=== PATIENT | female | born 1935 | race Caucasian/White ===

== ENCOUNTER 2018-08-26 21:28 | Inpatient (IN) | payer MEDICARE, BC ==
[~2018-08-26] VITALS: Ht 170.2 cm; Wt 77.6 kg
--- NOTE | 2018-08-26 22:30 | NUR ---
Pt. brought into ER by family w/ c/o R hip pain,
[2018-08-26] MEDS ORDERED: MORPHINE SULFATE 2 MG/1 ML DISP.SYRIN IV ONE (22:45)
[2018-08-26] MEDS ORDERED: ONDANSETRON 4 MG/2 ML VIAL IV ONE (22:45)
[2018-08-26] MEDS ORDERED: ONDANSETRON 4 MG/2 ML VIAL ONE (22:53)
[2018-08-26] MEDS ORDERED: MORPHINE SULFATE 2 MG/1 ML DISP.SYRIN ONE (22:54)
[2018-08-26 23:03] LABS: BASOPHILS # (AUTO) 0.1 K/uL (0.0-8.0); BASOPHILS % (AUTO) 0.5 % (0.0-2.0); EOSINOPHILS # (AUTO) 0.1 K/uL (0.0-0.7); EOSINOPHILS % (AUTO) 0.8 % (0.0-7.0); HEMOGLOBIN 11.9 g/dL (10.9-14.3); LYMPHOCYTES # (AUTO) 1.3 K/uL (20.0-40.0); LYMPHOCYTES % (AUTO) 10.1 % (20.5-51.5); MEAN CORPUSCULAR HEMOGLOBIN 32.5 uug (24.7-32.8); MEAN CORPUSCULAR HGB CONC 34 g/dL (32.3-35.6); MEAN CORPUSCULAR VOLUME 96.1 fL (75.5-95.3); MONOCYTES # (AUTO) 0.6 K/uL (2.0-10.0); MONOCYTES % (AUTO) 4.5 % (0.0-11.0); NEUTROPHILS # (AUTO) 11.1 K/uL (1.8-8.9); NEUTROPHILS % (AUTO) 84.1 % (38.5-71.5); PLATELET COUNT (AUTO) 215 K/uL (179-408); RED BLOOD CELL COUNT(AUTO) 3.65 MIL/uL (3.63-4.92); WHITE BLOOD COUNT (AUTO) 13.3 K/uL (3.8-11.8)
[2018-08-26 23:11] LABS: CARBON DIOXIDE 27 mmol/L (21-32); CHLORIDE 100 mmol/L (98-107); CREATININE 1.1 mg/dL (0.6-1.3); GLUCOSE 168 mg/dL (74-106); UREA NITROGEN, BLOOD 30 mg/dL (7-18)
[2018-08-26] MEDS ORDERED: MORPHINE SULFATE 4 MG/1 ML DISP.SYRIN IV ONE (23:30)
[2018-08-26] MEDS ORDERED: MORPHINE SULFATE 4 MG/1 ML DISP.SYRIN ONE (23:35)
[2018-08-26] MEDS ORDERED: LABETALOL HCL 100 MG/20 ML VIAL IV ONE (23:45)
[2018-08-26] MEDS ORDERED: HYDROMORPHONE 1 MG/1 ML DISP.SYRIN ONE (23:49)
[2018-08-26] MEDS ORDERED: LABETALOL HCL 100 MG/20 ML VIAL ONE (23:51)
[2018-08-26] MEDS ORDERED: FURO20TA4 PO (23:55)
[2018-08-26] MEDS ORDERED: ASPI-605 PO (23:55)
[2018-08-26] MEDS ORDERED: metoprolol PO (23:55)
[2018-08-26] MEDS ORDERED: SIMV40TA5 PO (23:55)
[2018-08-26] MEDS ORDERED: LISI10TA5 PO (23:55)
[2018-08-26] MEDS ORDERED: LEVO100T10 PO (23:55)
[2018-08-26] MEDS ORDERED: WARF7.5T49 PO (23:55)
[2018-08-27] MEDS ORDERED: diphenhydrAMINE 50 MG/1 ML VIAL IV ONE
[2018-08-27] MEDS ORDERED: HYDROMORPHONE 1 MG/1 ML DISP.SYRIN IV ONE
[2018-08-27] MEDS ORDERED: diphenhydrAMINE 50 MG/1 ML VIAL ONE (00:02)
[2018-08-27] MEDS ORDERED: hydrALAZINE HCL 20 MG/1 ML VIAL ONE (00:03)
[2018-08-27] MEDS ORDERED: IOHEXOL 300MG/ML 100 ML INFUS..BTL ONE (00:12)
[2018-08-27] MEDS ORDERED: SWABABLE VALVE TRANSFER SET EA MC ONE (00:12)
[2018-08-27] MEDS ORDERED: IV NORMAL SALINE 250 ML IV ONE (00:12)
[2018-08-27] MEDS ORDERED: hydrALAZINE HCL 20 MG/1 ML VIAL IV ONE (00:15)
[2018-08-27] MEDS ORDERED: LABETALOL HCL 100 MG/20 ML VIAL IV ONE ×2 (00:45)
--- NOTE | 2018-08-27 01:07 | NUR ---
Called [facility] for panel call
--- NOTE | 2018-08-27 01:20 | NUR ---
CALLED 2ND FLOOR FOR TELE BED. ASSIGNED [id number]
--- NOTE | 2018-08-27 01:57 | NUR ---
Gave report to pt. Nicolasa to transfer to tele room 205
--- NOTE | 2018-08-27 02:25 | NUR ---
Pt. admitted to TELE 205, under care of Dr. BAUTISTA. Belongs List completed
[2018-08-27 02:35] VITALS: BP 132/61
--- NOTE | 2018-08-27 02:35 | NUR ---
NSG: PT RECEIVED A/O X 4, FR ER VIA GURNEY WITH DX OF HEMATOMA. PT C/O RIGHT HIP PAIN THAT JUST STARTED YESTERDAY. TELE, AFIB. NO ACUTE DISTRESS NOTED. CONT TO MONITOR.
[2018-08-27] MEDS ORDERED: Z GUARD REMEDY PASTE 57 GM TUBE TOP PRN (02:45)
[2018-08-27] MEDS ORDERED: ONDANSETRON 4 MG/2 ML VIAL IV PRN (02:45)
[2018-08-27] MEDS ORDERED: ZOLPIDEM 5 MG TABLET PO PRN (02:45)
[2018-08-27] MEDS ORDERED: MORPHINE SULFATE 2 MG/1 ML DISP.SYRIN IV PRN (02:45)
[2018-08-27] MEDS ORDERED: MAGNESIUM HYDROXIDE 30 ML LIQUID UDC PO PRN (02:45)
[2018-08-27] MEDS ORDERED: IV NS 1000 ML 1,000 ML IV SCH (02:45)
[2018-08-27] MEDS ORDERED: ACETAMINOPHEN 325 MG TABLET PO PRN (02:45)
[2018-08-27] MEDS ORDERED: hydrALAZINE HCL 25 MG TABLET PO PRN (02:45)
[2018-08-27 04:00] VITALS: BP 125/75
--- NOTE | 2018-08-27 06:57 | NUR ---
nsg: pt only urinated 5ml using bedpan. pt encouraged to urinate. stated will urinate later. per pt, never had a problem urinating. does not want a garcia catheter. bedside commode at the bedside. will cont to monitor. will endorse to am nurse.
[2018-08-27] MEDS: LEVOTHYROXINE SODIUM 100 MCG TABLET PO SCH (07:30)
--- NOTE | 2018-08-27 07:30 | NUR ---
PATIENT ASSISTED FROM THE COMMODE NEEDED 2 MAX ASSIST TO TRANSFER BACK INTO BED LOWER EXT TENDS TO [facility] COMFORTABLE CALL LIGHTS AND PERSONAL BELONGINGS PLACED WITHIN EASY REACH.WILL CONTINUE TO OBSERVE.
[2018-08-27] MEDS: FUROSEMIDE 20 MG TABLET PO SCH (08:12)
[2018-08-27] MEDS: LISINOPRIL 10 MG TABLET PO SCH (08:13)
[2018-08-27] MEDS: METOPROLOL TARTRATE 50 MG TABLET PO SCH ×3 (08:13→20:54)
--- NOTE | 2018-08-27 08:14 | NUR ---
PATIENT REFUSED ALL HER MEDICATIONS STATED THAT SHE DOES NOT WANT TO BE CHARGED STATED THAT SHE WILL TAKE HER OWN MEDICATIONS FROM HOME BUT HER MEDICATIONS ARE NOT HERE HER IS AT THE BEDSIDE AND HE SAID THAT HE WILL BRING ALL HER MEDICATIONS LATER.
[2018-08-27] MEDS ORDERED: ASPIRIN EC 81 MG TABLET.DR PO SCH (09:00)
[2018-08-27 12:04] VITALS: BP 106/56
--- NOTE | 2018-08-27 13:00 | NUR ---
RESULT OF THE URINE RECEIVED FROM THE LAB AND DR COLIN NOTIFIED NO NEW ORDERS AT THIS TIME.
[2018-08-27 13:18] LABS: *BILIRUBIN,URIN NEGATIVE (NEGATIVE); *BLOOD, URINE Trace-lysed (NEGATIVE); *CLARITY,URINE SLIGHTLY CLOUDY (CLEAR); *COLOR,URINE YELLOW (YELLOW); *KETONES,URINE NEGATIVE (NEGATIVE); *PROTEIN,URINE NEGATIVE (NEGATIVE); *UROBILINOGEN,URINE 0.2 E.U./dl (NORMAL); LEUKOCYTE ESTERASE ,URINE 1+ (NEGATIVE); NITRITE, URINE POSITIVE (NEGATIVE); PH,URINE 6.5 (5.0-8.0); UGLUCOSE NEGATIVE (NEGATIVE)
[2018-08-27 13:36] LABS: BACTERIA,URINE MANY /HPF (NONE SEEN); RBC,URINE 0-3 /HPF (0-3); SQUAMOUS EPITHELIAL CELL,UR FEW /HPF (NONE SEEN); WBC,URINE 20-50 /HPF (0-3)
[2018-08-27 15:41] VITALS: BP 105/70
[2018-08-27] MEDS ORDERED: WARFARIN SODIUM 7.5 MG TABLET PO SCH (17:00)
[2018-08-27] MEDS ORDERED: LEVOFLOXACIN 500 MG/D5W 500 MG in PREMIXED 1 EACH IV SCH ×2 (19:00→20:00)
[2018-08-27 20:00] VITALS: BP 179/79
[2018-08-27] MEDS: SIMVASTATIN 40 MG TABLET PO SCH (20:46)
[2018-08-27] MEDS: HYDROCODONE/APAP 5-325MG TABLET PO PRN (21:09)
[2018-08-27] MEDS ORDERED: CLONIDINE HCL 0.1 MG TABLET PO PRN (22:30)
[2018-08-28] VITALS (7 sets, daily range): BP systolic 105–163; BP diastolic 46–67
[2018-08-28 06:13] LABS: BASOPHILS % (AUTO) 0.3 % (0.0-2.0); EOSINOPHILS # (AUTO) 0.5 K/uL (0.0-0.7); EOSINOPHILS % (AUTO) 5.2 % (0.0-7.0); HEMATOCRIT 28.7 % (31.2-41.9); HEMOGLOBIN 9.9 g/dL (10.9-14.3); LYMPHOCYTES # (AUTO) 1.6 K/uL (20.0-40.0); LYMPHOCYTES % (AUTO) 19.1 % (20.5-51.5); MEAN CORPUSCULAR HGB CONC 35 g/dL (32.3-35.6); MEAN CORPUSCULAR VOLUME 95.5 fL (75.5-95.3); MONOCYTES % (AUTO) 11.5 % (0.0-11.0); NEUTROPHILS # (AUTO) 5.5 K/uL (1.8-8.9); NEUTROPHILS % (AUTO) 63.9 % (38.5-71.5); PLATELET COUNT (AUTO) 174 K/uL (179-408); WHITE BLOOD COUNT (AUTO) 8.6 K/uL (3.8-11.8)
[2018-08-28 06:43] LABS: CARBON DIOXIDE 33 mmol/L (21-32); CHLORIDE 105 mmol/L (98-107); CHOLESTEROL 157 mg/dL (<200); CREATININE 0.9 mg/dL (0.6-1.3); GLUCOSE 94 mg/dL (74-106); HDL CHOLESTEROL 55 mg/dL (40-60); MAGNESIUM 2.2 mg/dL (1.8-2.4); PHOSPHOROUS 2.8 mg/dL (2.5-4.9); POTASSIUM 4.8 mmol/L (3.5-5.1); TRIGLYCERIDES 129 MG/DL (30-150); UREA NITROGEN, BLOOD 19 mg/dL (7-18)
[2018-08-28] MEDS: PANTOPRAZOLE SODIUM 40 MG TABLET.DR PO SCH (06:53)
[2018-08-28] MEDS: LEVOTHYROXINE SODIUM 100 MCG TABLET PO SCH (06:54)
[2018-08-28] MEDS: LISINOPRIL 10 MG TABLET PO SCH (08:23)
[2018-08-28] MEDS: METOPROLOL TARTRATE 50 MG TABLET PO SCH ×2 (08:27→16:51)
[2018-08-28] MEDS: HYDROCODONE/APAP 5-325MG TABLET PO PRN ×2 (08:27→19:28)
[2018-08-28] MEDS: FUROSEMIDE 20 MG TABLET PO SCH (08:28)
--- NOTE | 2018-08-28 08:30 | NUR ---
PATIENT RECEIVED AWAKE ALERT AND ORIENTED REQUESTED FOR PAIN MEDICATIONS GIVEN ORDERED REMAIN ON ROOM AIR WITH NO SHORTNESS OF BREATH AT THIS TIME NO ADVERSE OR ALLERGIC REACTIONS NOTED FROM ATB ORDERED ASSISTED NEEDED USING THE BEDSIDE COMMODE AND VOIDING WELL WILL CONTINUE TO OBSERVE.
--- NOTE | 2018-08-28 10:50 | NUR ---
VENOUS DUPLEX COMPLETED ORDERED AWAITING FOR RESULTS.
[2018-08-28 13:01] LABS: IRON, SERUM 58 ug/dL (50-175)
--- NOTE | 2018-08-28 18:40 | NUR ---
RESTING DENIES DISCOMFORTS AT THIS TIME FAMILY AT THE BEDSIDE NOT IN DISTRESS AT THIS TIME.
--- NOTE | 2018-08-28 19:10 | NUR ---
RECEIVED PATIENT AWAKE ON BED, AAOX4 DENIES SOB OR CHEST PAIN AT THIS TIME. IV SITE ON RFA, PATENT AND INTACT. SAFETY MEASURES INITIATED, PLACED BED ON LOW AND LOCKED POSITION WITH TWO SIDE RAILS UP. BED ALARM ON. PT BELONGINGS AND CALL RICHARD WITHIN REACH.
[2018-08-28] MEDS ORDERED: LEVOFLOXACIN 250MG /D5W 250 MG in PREMIXED 1 EACH IV SCH (20:00)
[2018-08-28] MEDS: SIMVASTATIN 40 MG TABLET PO SCH (20:50)
[2018-08-28] MEDS ORDERED: FUROSEMIDE 20 MG TABLET PO SCH (21:00)
--- NOTE | 2018-08-28 21:00 | NUR ---
PATIENT REFUSED TO TAKE SCHEDULED LASIX AT THIS TIME. PER PATIENT, SHE TAKES HER LASIX IN THE MORNING. WILL ENDORSE ACCORDINGLY IN THE AM.
--- NOTE | 2018-08-28 21:30 | NUR ---
REASSESSED PATIENT, PATIENT COMPLAINT OF PAIN ON R HIP WITH PAIN SCALE OF 7, BP SHOWS 128/58. PATIENT REQUESTING FOR PAIN MEDICATION. PRN TYLENOL 650 GIVEN. WILL CONTINUE TO MONITOR.
--- NOTE | 2018-08-28 22:40 | NUR ---
PATIENT PAIN SCALE 3/10. NO SIGNS OF ACUTE DISTRESS NOTED AT THIS TIME. TREATMENT EFFECTIVE.
[2018-08-29] VITALS: BP 131/75
[2018-08-29] MEDS: HYDROCODONE/APAP 5-325MG TABLET PO PRN ×3 (01:16→18:36)
[2018-08-29 04:00] VITALS: BP 134/50
[2018-08-29] MEDS: PANTOPRAZOLE SODIUM 40 MG TABLET.DR PO SCH (06:28)
[2018-08-29] MEDS: LEVOTHYROXINE SODIUM 100 MCG TABLET PO SCH (06:28)
[2018-08-29 06:31] LABS: BASOPHILS % (AUTO) 0.5 % (0.0-2.0); EOSINOPHILS # (AUTO) 0.6 K/uL (0.0-0.7); EOSINOPHILS % (AUTO) 7.4 % (0.0-7.0); HEMATOCRIT 29.5 % (31.2-41.9); LYMPHOCYTES # (AUTO) 2.3 K/uL (20.0-40.0); MEAN CORPUSCULAR HEMOGLOBIN 33.2 uug (24.7-32.8); MEAN CORPUSCULAR HGB CONC 34 g/dL (32.3-35.6); MONOCYTES # (AUTO) 0.8 K/uL (2.0-10.0); MONOCYTES % (AUTO) 9.5 % (0.0-11.0); NEUTROPHILS # (AUTO) 4.9 K/uL (1.8-8.9); NEUTROPHILS % (AUTO) 56.6 % (38.5-71.5); PLATELET COUNT (AUTO) 186 K/uL (179-408); RED BLOOD CELL COUNT(AUTO) 3.01 MIL/uL (3.63-4.92); WHITE BLOOD COUNT (AUTO) 8.7 K/uL (3.8-11.8)
[2018-08-29 06:48] LABS: CARBON DIOXIDE 33 mmol/L (21-32); CHLORIDE 106 mmol/L (98-107); CREATININE 0.9 mg/dL (0.6-1.3); GLUCOSE 94 mg/dL (74-106); POTASSIUM 4.4 mmol/L (3.5-5.1); UREA NITROGEN, BLOOD 16 mg/dL (7-18)
--- NOTE | 2018-08-29 06:49 | NUR ---
PATIENT ON BED, AAOX4, NO SIGNS OF ACUTE DISTRESS NOTED AT THIS TIME. IV SITE ON RFA, PATENT AND INTACT. PATIENT ABLE TO TOLERATE AMBULATING FROM BED TO COMMODE AT BEDSIDE. KEPT PATIENT SAFE AND COMFORTABLE AT ALL TIMES, BED ALARM ON. ALL NEEDS ATTENDED AND MET. CALL RICHARD WITHIN REACH. Addendum: 08/29/18 at 0653 by YAIMA SANCHES RN ON TELE AFIB CONTROLLED WITH HR OF 63.
--- NOTE | 2018-08-29 08:05 | NUR ---
Received patient from [place] night nurse RN. Patient alert and oriented, sitting up in bed, on room air, IV running, no sign of respiratory distress.
[2018-08-29] MEDS: METOPROLOL TARTRATE 50 MG TABLET PO SCH (08:43)
[2018-08-29] MEDS: LISINOPRIL 10 MG TABLET PO SCH (08:43)
[2018-08-29] MEDS ORDERED: FUROSEMIDE 20 MG TABLET PO SCH (09:37)
--- NOTE | 2018-08-29 09:38 | NUR ---
[facility] to tell them that patient says she takes her lasix during the day at home and to ask them to change time to AM. Pharm said they will change time to 0900.
[2018-08-29 10:59] VITALS: BP 104/51
--- NOTE | 2018-08-29 12:14 | NUR ---
Ernesto called me to get consent for CT with contrast. Patient allergic to idiodine but had CT with contrast on this admission with no reaction. Patient was given morphine on that CT procedure. Addendum: 08/29/18 at 1242 by LEIGH ANN MEDINA RN Patient was given Benadryl, not morphine
--- NOTE | 2018-08-29 12:42 | NUR ---
Called Dr Leone to ask if we can give patient Benadryl before CT scan. Order for Benadryl received and carried out.
[2018-08-29] MEDS ORDERED: SWABABLE VALVE TRANSFER SET EA MC ONE (12:43)
[2018-08-29] MEDS ORDERED: IOHEXOL 300MG/ML 100 ML INFUS..BTL ONE (12:43)
[2018-08-29] MEDS ORDERED: IV NORMAL SALINE 250 ML IV ONE (12:43)
[2018-08-29] MEDS ORDERED: diphenhydrAMINE 50 MG/1 ML VIAL IV ONE (13:30)
[2018-08-29] MEDS ORDERED: FUROSEMIDE 40 MG/4 ML VIAL IV ONE (15:15)
[2018-08-29 15:26] VITALS: BP 112/44
[2018-08-29] MEDS ORDERED: HYDR-3326 PO (16:14)
[2018-08-29] MEDS ORDERED: SIMV20TA6 PO (16:14)
[2018-08-29] MEDS ORDERED: NITR100C11 PO (16:14)
[2018-08-29] MEDS ORDERED: METO100T14 PO (16:14)
[2018-08-29] MEDS ORDERED: METOPROLOL TARTRATE 50 MG TABLET PO SCH (18:00)
--- NOTE | 2018-08-29 18:45 | NUR ---
Patient discharged on wheelchair accompanied by son, and STEPHANIE Hart. Patient in stable condition. IV and Tele box removed. IV removed with intact tip. Pain medication given before patient left. Belongings returned. Patient given written prescription. Patient given printed aftercare material. Patient verbalizes understanding. Patient also given walker. Patient to be transported in private car, per family.
[2018-08-29] MEDS ORDERED: NITROFURANTOIN/NITROFURAN MAC 100 MG CAPSULE PO SCH (21:00)
[2018-08-30] MEDS ORDERED: LEVOTHYROXINE SODIUM 25 MCG TABLET PO SCH (07:00)
--- NOTE | 2018-08-30 16:48 | NUR ---
Per Dr. Leone: order for furosemide 20mg PO Tablet times 14days ordered to [facility] pharmacy on [address]
== END 2018-08-29 18:40 | disposition home or self-care (01) | DRG 555 ==
LOC: ER 21:34 → TELE 08-27 01:59
PROVIDERS: ADMIT Family Medicine; ATTEND Internal Medicine
DX: M79.81 Nontraumatic hematoma of soft tissue (principal); I50.33 Acute on chronic diastolic (congestive) heart failure; N39.0 Urinary tract infection, site not specified; G57.21 Lesion of femoral nerve, right lower limb; M48.061 Spinal stenosis, lumbar region without neurogenic claudication; I48.2 Chronic atrial fibrillation; Z79.01 Long term (current) use of anticoagulants; Z96.641 Presence of right artificial hip joint; E78.5 Hyperlipidemia, unspecified; Z79.899 Other long term (current) drug therapy; B96.20 Unspecified Escherichia coli [E. coli] as the cause of diseases classified elsewhere; Z87.440 Personal history of urinary (tract) infections; Z85.828 Personal history of other malignant neoplasm of skin; E86.0 Dehydration; D75.89 Other specified diseases of blood and blood-forming organs; K57.30 Diverticulosis of large intestine without perforation or abscess without bleeding; I07.1 Rheumatic tricuspid insufficiency; I27.20 Pulmonary hypertension, unspecified; I11.0 Hypertensive heart disease with heart failure
CPT/HCPCS: 36415; 71045; 72193; 73502; 76775; 83550; 83735; 84100; 84443; 85025; 85610; 85730; 87077; 87086; 93307; A4663; G0378; J0360; J1170; J1200; J1940; J1956; J2270; J2405; J3490; J7030; J7050; Q9967